=== PATIENT | male | born 1965 | race Caucasian/White ===

== ENCOUNTER 2018-03-04 05:46 | Day surgery (SDC) | payer OTHER ==
[2018-03-04] MEDS: LIDOCAINE 1% (MPF) 30 ML INJ INJ
[2018-03-04] MEDS: BUPIVACAINE 0.25% (MPF) 30 ML INJ INJ
[2018-03-04] MEDS ORDERED: PROPOFOL 20 ML (06:22)
[2018-03-04] MEDS ORDERED: ROCURONIUM 50 MG INJ (06:22)
[2018-03-04] MEDS ORDERED: GLYCOPYRROLATE 0.4 MG INJ (06:22)
[2018-03-04] MEDS ORDERED: DEXAMETHASONE 4 MG/ML 1 ML INJ (06:23)
[2018-03-04] MEDS ORDERED: NEOSTIGMINE 3 MG/3 ML SYRINGE (06:23)
[2018-03-04] MEDS ORDERED: LIDOCAINE 2% (SDV) 5 ML INJ (06:23)
[2018-03-04] MEDS ORDERED: MIDAZOLAM 1 MG/ML 2 ML INJ (06:23)
[2018-03-04] MEDS ORDERED: FENTAnyl 50 MCG/ML VIAL (06:23)
[2018-03-04] MEDS ORDERED: ONDANSETRON 4 MG INJ (06:23)
[2018-03-04] MEDS ORDERED: NALOXONE (0.4 MG/ML) INJ IV (06:30)
[2018-03-04] MEDS ORDERED: BUPIVACAINE 0.25% (MPF) 30 ML INJ (06:54)
[2018-03-04] MEDS ORDERED: LIDOCAINE 1% (MPF) 30 ML INJ (06:55)
[2018-03-04] MEDS ORDERED: ONDANSETRON 4 MG INJ IV (08:00)
[2018-03-04] MEDS ORDERED: OXYCODONE/ACETAMINOPHEN (5/325) TAB PO ×2 (08:00)
[2018-03-04] MEDS ORDERED: ACETAMINOPHEN 325 MG TAB PO (09:00)
== END 2018-03-04 08:59 | disposition home or self-care (01) ==
LOC: SDS 05:46
DX: L72.0 Epidermal cyst (principal)
CPT/HCPCS: 11402; 88307